=== PATIENT | female | born 1940 | race Caucasian/White ===

== ENCOUNTER 2018-10-28 05:24 | Day surgery (SDC) | payer OTHER ==
[~2018-10-28] VITALS: Ht 154.9 cm; Wt 61.2 kg
[~2018-10-28 05:24] MED LIST: AMOXICILLIN 50500 M1 PO; ASPIR 8181 MG PO; AZATHIOPRINE50 MG PO; LIPITOR 20 MG T20 M1 PO; MOBIC7.5 MG PO; NORCO 5-325 TA1 EACH PO; NORVASC2.5 MG PO; SUDAFED 12 HR120 MG PO; SUPER B-50 COM1 EACH PO; VITAMIN C500 M1 PO; VITAMIN D3400 UNIT PO; ZOFRAN ODT4 MG PO
[2018-10-28] MEDS ORDERED: NORCO 5-325 TA1 EACH PO (13:22)
--- NOTE | 2018-10-28 16:54 | EKG ---
[address] [address] ELECTROCARDIOGRAM REPORT Name: PATRICIAМАРИЯ Room #: DEP [facility].#: [id number] ������������������ Admission: 10/28/18 ������������������ Attend Phys: Kaleb Wen MD Discharge: 10/28/18 ������������������ Date of : 40 Report #: [id number] ����������������������������������������������������������������� [id number] THIS REPORT FOR: //name// [facility] Test Date: 2018-10-28 Test Time: 10:46:26 Pat Name: МАРИЯ GOMEZ Department: Room: 150 2 Gender: F Magazine Designer: [place] : 1940 Requested By: Kaleb Wen Order Number: [id number] MD: Curtis Hernandez Measurements Intervals [place] Rate: 91 P: 11 GA: 162 QRS: -7 QRSD: 88 T: -12 QT: 387 QTc: 477 Interpretive Statements Sinus rhythm Inferior infarct, old Anteroseptal infarct, old Compared to ECG 07/11/2017 13:19:02 No significant changes Electronically Signed On 10-28-2018 16:54:24 VARNISHER by Curtis Hernandez [email or web address] ��������������������������������������������� <ELECTRONICALLY SIGNED> ���������������������������������������� By: Curtis Hernandez MD ��������������������������������������������� 10/28/18 1654 1046 1046 Curtis Hernandez MD /BABITA
--- NOTE | 2018-10-31 15:06 | PATH ---
[facility] [address] [address] PATHOLOGY RPT PROCEDURE Name: МАРИЯ WIN Room #: DEP [facility] M.R.#: [id number] ������������������ Admission: 10/28/18 ������������������ Date of : 40 Discharge: 10/28/18 Report #: [id number] Path Case #: [id number] [facility] Accession Number: [id number] . 01 Material submitted: . PART A: POSTERIOR NECK MASS PART B: ADDITIONAL NECK MASS PIECES . 01 Clinical history: . Enlarged lymph node back of neck . 02 Diagnosis: A. Mature adipose tissue, posterior neck mass, excision: - Compatible with a lipoma. . B. Mature adipose tissue, additional neck mass pieces, excision: - Fragments compatible with a lipoma. - Fragments of skeletal muscle and nerves. (IUV:melody; 10/29/2018) QMS/10/29/2018 . 02 Electronically signed: . Catherine Hernandez MD, Pathologist NPI- [id number] . 01 Gross description: . A. The specimen is received in formalin, labeled "Мария Win, posterior neck mass" and consists of a segment of yellow-orange lobulated tissue measuring 1.8 x 1.3 x 0.7 cm. Sectioning reveals a possible fat replaced lymph node candidate and the specimen is entirely submitted in A1. . B. The specimen is received in formalin, labeled "Мария Win, additional neck mass pieces" and consists of 7 irregular segments of yellow-orange to pink-torres lobulated tissue measuring 3.4 x 3.4 x 0.6 cm in aggregate. Sectioning reveals fibrous pink-white cut surfaces throughout each segment. The specimen is entirely submitted in B1-B3. (SDY; 10/28/2018) SYU/SYU . 02 Pathologist provided ICD-10: D17.79 . 02 CPT . 422987, [id number] Specimen Comment: A courtesy copy of this report has been sent to Specimen Comment: [phone], [place] [address] PATHOLOGY RPT PROCEDURE Name: МАРИЯ WIN Room #: DEP [facility] M.Velma.#: [id number] ������������������ Admission: 10/28/18 ������������������ Date of : 40 Discharge: 10/28/18 Report #: [id number] Path Case #: [id number] Specimen Comment: Report sent to / DR AQUINO Specimen Comment: A duplicate report has been generated due to demographic updates. Performed at: [address] [facility] [address], [place], [place] [id number] MD Oziel Moses MD Phone: [phone] Performed at: [address] [facility] [id number] MD Catherine Hernandez MD Phone: [phone]
--- NOTE | 2018-11-01 12:10 | O ---
[facility] [address] OPERATIVE REPORT Name: МАРИЯ GOMEZ Room #: DEP [facility] M..#: [id number] Admission: 10/28/18 ������������������ Attend Phys: Kaleb Wen MD Discharge: 10/28/18 ������������������ Date of : 40 Report #: [id number] THIS REPORT FOR: //name// CC: Kaleb Kenny MD DATE OF SERVICE: 10/28/2018 PREOPERATIVE DIAGNOSIS: Posterior neck mass measuring about 2 cm. POSTOPERATIVE DIAGNOSIS: Posterior neck mass measuring about 2 cm, probable deep subcutaneous lipoma. PROCEDURES PERFORMED: Exploration of the posterior neck with excision of lipoma. SURGEON: Kaleb Wen M.D. ANESTHESIA: IV sedation, local 0.25% Marcaine. COMPLICATIONS: None. ESTIMATED BLOOD LOSS: 10 mL. PROCEDURE NOTE: With the patient under IV sedation, I elected to have her lay on the lateral position avoiding the prone position and airway monitoring issue. The patient is sedated quite well. The lesion was marked with preoperative marking pen. Timeout was performed. The neck was prepped and draped in sterile fashion. The patient did receive IV antibiotic. A transverse incision was made over the palpable area. After dissecting through the skin and subcutaneous tissue, the subcutaneous tissue was explored. After I made a skin incision, it was difficult to feel the lump. Deeper down through the subcutaneous, the fascia appeared normal. I did not feel anything at this area. Quite a bit of the fascia was actually opened and explored. The muscle was normal. Then, with palpating through the skin, it felt like it was attached to the lower skin flap. When I looked under the lower skin flap, there appeared to be a well-formed lipoma there that was slightly firmer than the surrounding tissue. This measured about 1.5 cm, oval shape. Not suspicious. I did not find any suspicious lymph node in the area. Hemostasis obtained and the irrigation was performed. Subcutaneous was closed with 4-0 PDS in interrupted fashion. Skin [facility] [address] [place] [address] OPERATIVE REPORT Name: МАРИЯ GOEMZ Room #: DEP [facility]..#: [id number] Admission: 10/28/18 ������������������ Attend Phys: Kaleb Wen MD Discharge: 10/28/18 ������������������ Date of : 40 Report #: [id number] was closed with 5-0 PDS running subcuticular fashion. Steri-Strip, 4 x 4, OpSite was applied. The patient tolerated procedure well. ��������������������������������������������� <ELECTRONICALLY SIGNED> ���������������������������������������� By: Kaleb Wen MD ��������������������������������������������� 11/01/18 1210 1348 1435 Kaleb Wen MD /nt
== END 2018-10-28 14:35 | disposition home or self-care (01) ==
LOC: OR 05:24 → TBA 05:25 → OR 12:59
DX: D17.0 Benign lipomatous neoplasm of skin and subcutaneous tissue of head, face and neck (principal); I10 Essential (primary) hypertension; E78.5 Hyperlipidemia, unspecified; K75.4 Autoimmune hepatitis; Z85.828 Personal history of other malignant neoplasm of skin; Z98.890 Other specified postprocedural states; Z90.710 Acquired absence of both cervix and uterus; Z79.899 Other long term (current) drug therapy; Z88.2 Allergy status to sulfonamides
CPT/HCPCS: 50010; 50101; 50386; 50417; 51301; 56524; 56525; 62110; 62850; 70005